=== PATIENT | female | born 1955 | race American Indian/Alaskan Native ===

== ENCOUNTER 2024-07-19 11:45 | Emergency (ER) | payer SELFPAY ==
[~2024-07-19] VITALS: Ht 157.5 cm; Wt 83.2 kg
[2024-07-19 12:17] VITALS: BP 158/85; PULSE 80; RESP 16; TEMP 98.6; O2SAT 97
[2024-07-19] MEDS ORDERED: TOB03OS OP (12:25)
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
== END 2024-07-19 12:45 | disposition home or self-care (01) ==
LOC: ER 11:45
DX: S05.01XA Injury of conjunctiva and corneal abrasion without foreign body, right eye, initial encounter (principal); I10 Essential (primary) hypertension; E11.9 Type 2 diabetes mellitus without complications; Z79.899 Other long term (current) drug therapy; W22.8XXA Striking against or struck by other objects, initial encounter; Y93.89 Activity, other specified; Y92.89 Other specified places as the place of occurrence of the external cause; Y99.8 Other external cause status